=== PATIENT | female | born 1955 ===

== ENCOUNTER 2021-11-30 05:30 | Day surgery (SDC) | payer OTHER ==
[~2021-11-30] VITALS: Ht 170.2 cm; Wt 81.2 kg
[~2021-11-30 05:30] MED LIST: COZAAR100 MG PO; CRESTOR10 MG PO
[2021-11-30] MEDS ORDERED: PERCOCET 5-3251 EACH PO (09:02)
== END 2021-11-30 13:10 | disposition home or self-care (01) ==
LOC: CIR.AMB 05:30
PROVIDERS: ATTEND Surgery
DX: C73 Malignant neoplasm of thyroid gland (principal); J45.909 Unspecified asthma, uncomplicated; I10 Essential (primary) hypertension; E78.5 Hyperlipidemia, unspecified